=== PATIENT | female | born 1970 | race American Indian/Alaskan Native ===

== ENCOUNTER 2016-07-03 05:19 | Inpatient (IN) | payer MEDICAID, OTHER ==
[2016-07-03] MEDS ORDERED: Sodium Chloride 0.9% 1,000 ML IV ONE ×2 (05:42→08:04)
[2016-07-03] MEDS ORDERED: Sodium Chloride 0.9% 0 ML ONE (05:50)
--- NOTE | 2016-07-03 06:03 | C.PDOC ---
History Of Present Illness 45 y/o female presents to ED with requesting detox from alcohol and cocaine. Patient reports using crack and drinking alcohol daily. Patient also complains of feeling tremulous. Notes last drink was 5 hours ago. Denies chest pain, palpitations, SOB, SI/HI, or other complaints. Time Seen by Provider: 07/03/16 05:41 Chief Complaint (Nursing): Psychiatric Evaluation History Per: Patient History/Exam Limitations: no limitations Onset/Duration Of Symptoms: Persistent Current Symptoms Are (Timing): Still Present Suicide/Self Injury Attempted (Context): None Modifying Factor(s): Alcohol, Cocaine, Crack Associated Symptoms: denies: Suicidal Thoughts, Suicidal Plan Recent travel outside of the [place]: No Past Medical History Reviewed: Historical Data, Nursing Documentation, Vital Signs Vital Signs: Last Vital Signs Temp 97.3 F L 07/03/16 05:28 Pulse 120 H 07/03/16 05:28 Resp 22 07/03/16 05:28 BP 157/119 H 07/03/16 05:28 Pulse Ox 98 07/03/16 06:05 - Medical History PMH: No Chronic Diseases Family History: States: Unknown Family Hx - Social History Hx Alcohol Use: Yes Hx Substance Use: Yes - Immunization History Hx Tetanus Toxoid Vaccination: Yes Hx Influenza Vaccination: No Hx Pneumococcal Vaccination: No Review Of Systems Except As Marked, All Systems Reviewed And Found Negative. Constitutional: Positive for: Other (tremors). Negative for: Fever Cardiovascular: Negative for: Chest Pain, Palpitations Respiratory: Negative for: Cough, Shortness of Breath Gastrointestinal: Negative for: Nausea, Vomiting Neurological: Negative for: Dizziness Psych: Positive for: Withdrawal Physical Exam - Physical Exam Appears: Non-toxic, Other (generalized tremors) Skin: Warm, Dry Head: Atraumatic, Normacephalic Oral Mucosa: Moist Chest: Symmetrical Cardiovascular: Rhythm Regular (tachycardic), No Murmur Respiratory: Normal Breath Sounds, No Rales, No Rhonchi, No Wheezing Gastrointestinal/Abdominal: Soft, No Tenderness Back: Normal Inspection Extremity: Normal ROM, Capillary Refill (< 2 sec.) Neurological/Psych: Oriented x3, Normal Speech, Normal Cognition ED Course And Treatment - Laboratory Results Result Diagrams: 07/03/16 06:04 07/03/16 06:04 O2 Sat by Pulse Oximetry: 98 (RA) Pulse Ox Interpretation: Normal Progress Note: Patient refuses IV for hydration. Requests librium. Will give librium PO. Labs ordered. Pt S/O to HECTOR rucker- pending labs and crisis evaluation Disposition - Disposition Disposition Time: 07:02 Condition: STABLE - Clinical Impression Clinical Impression: Drug dependence - PA / FAMILY SERVICE COUNSELOR / Resident Statement MD/DO has reviewed & agrees with the documentation as recorded. - Scribe Statement The provider has reviewed the documentation as recorded by the Scribe Phillip Baig Provider Scribe Attestation: All medical record entries made by the Scribe were at my direction and personally dictated by me. I have reviewed the chart and agree that the record accurately reflects my personal performance of the history, physical exam, medical decision making, and the department course for this patient. I have also personally directed, reviewed, and agree with the discharge instructions and disposition. Physician Patient Turnover Patient Signed Over To: Shalonda Rucker Handoff Comments: Pending labs for clearance for crisis evaluation
[2016-07-03 06:10] LABS: BASO % 1.2 % (0.0-2.0); EOS # 0.1 K/uL (0.0-0.7); EOS % 2.7 % (0.0-4.0); HEMATOCRIT 35.3 % (34.0-47.0); LYMPH # 1.6 K/uL (1.0-4.3); LYMPH % 39.7 % (20.0-40.0); MEAN CELL VOLUME 93.9 fL (81.0-99.0); MEAN CORPUSCULAR HEMOGLOBIN 30.5 pg (27.0-31.0); MEAN CORPUSCULAR HGB CONC 32.5 g/dL (33.0-37.0); MEAN PLATELET VOLUME 7.4 fL (7.2-11.7); MONO # 0.4 K/uL (0.0-0.8); MONO % 10.3 % (0.0-10.0); NRBC % 0.1 % (0.0-2.0); RED CELL DISTRIBUTION WIDTH 13.7 % (11.5-14.5); WHITE BLOOD COUNT 3.9 K/uL (4.8-10.8)
[2016-07-03 06:38] LABS: CHLORIDE 102 mmol/L (98-107)
[2016-07-03 06:39] LABS: POTASSIUM 3.4 mmol/L (3.6-5.2); SODIUM 139 mmol/L (132-148)
[2016-07-03 06:41] LABS: ALB/GLOB RATIO 1.1 (1.0-2.1); AST/SGOT 59 U/L (14-36); BILIRUBIN,TOTAL < 0.1 mg/dL (0.2-1.3); CARBON DIOXIDE 25 mmol/L (22-30); GFR AFRICAN-AMERICAN > 60; TOTAL PROTEIN 7.9 g/dL (6.3-8.3)
[2016-07-03 06:42] LABS: ALCOHOL SERUM 139 mg/dl (0-10); ALKALINE PHOSPHATASE 61 U/L (38-126); ALT/SGPT 56 U/L (9-52); BLOOD UREA NITROGEN 4 mg/dL (7-17); CALCIUM 8.8 mg/dl (8.6-10.4); GLUCOSE,RANDOM 86 mg/dL (65-105)
[2016-07-03 08:51] LABS: RBC URINE < 1 /hpf (0-3); URINE BILIRUBIN NEGATIVE (NEGATIVE); URINE BLOOD NEGATIVE (NEGATIVE); URINE COLOR Yellow (YELLOW); URINE GLUCOSE (UA) NORMAL (Normal); URINE KETONE NEGATIVE (NEGATIVE); URINE LEUKOCYTE ESTERASE NEG Leu/uL (Negative); URINE PROTEIN NEGATIVE (NEGATIVE); URINE UROBILINOGEN NORMAL mg/dL (0.2-1.0); WBC URINE 2 /hpf (0-5)
[2016-07-03] MEDS ORDERED: Sodium Chloride 0.9% 1,000 ML ONE (10:22)
[2016-07-03] MEDS ORDERED: Aluminum Hydroxide/Magnesium Hydroxide Susp (30 mL) PO PRN (16:05)
[2016-07-03] MEDS: Multiple Vitamins Tab PO SCH (17:40)
[2016-07-04] MEDS: Multiple Vitamins Tab PO SCH (09:46)
--- NOTE | 2016-07-04 10:31 | PCM.PSYCH ---
Initial Psychiatric Evaluation - Initial Psychiatric Evaluation Type of Admission: Voluntary Legal Status: Capacity Chief Complaint (in patient's own words): "I want to stop drinking" History of Present Illness and Precipitating Events: Patient is a 45 year old Female. She lives with her and has no children. She supports herself by stealing. Patient says she came to the hospital because she was feeling depressed and passive suicidal ideation. Pt reports "Addiction is killing me" "drugs killing me". Patient reports a long history of drinking. Patient drinks 2 pints of vodka and 12, 24oz cans of beer a day. She also smokes $100 dollars worth of crack cocaine. Her last use was before coming to hospital. Patient says she drinks all throughout the day and wants to stop using because she is "killing herself. " Patient says she was in detox at [facility] last year and started drinking/ using the day she got out. She never went to rehab and would like to. She denies using any other drugs. Patient denies any psychiatric history except for depression for which she took Zoloft 20 years ago. she reports depressed mood, at times feelings of hopelessness and helplessness and poor sleep and poor appetite. She also reports at times racing of thoughts and flight of ideas. Patient denies ever having DTs, seizures. Patient says she is shaky, sweating and very irritable. Patient denies any visual/auditory hallucinations. Patient denies any current or past suicidal or homicidal ideation. Patient remained irritable and agitated throughout the interview. She was aggravated and cursing at other patients and staff. Allergies: denies PMH: denies PsychHx: depression FamPsychHx: denies Current Medications: Active Medications Generic Name Dose Route Start Last Admin Trade Name Freq PRN Reason Stop Dose Admin Al Hydrox/Mg Hydrox/Simethicone 30 ml 07/03/16 16:05 Maalox 30 Ml PO TID PRN Indigestion / Heartburn Chlordiazepoxide 25 mg 07/03/16 18:00 07/03/16 22:01 Librium PO 07/07/16 17:59 Not Given Q6 GERARDO Taper Chlordiazepoxide 25 mg 07/03/16 15:45 07/04/16 09:46 Librium PO 25 mg Q4H PRN Administration Alcohol Withdrawal Clonidine HCl 0.1 mg 07/03/16 16:04 Catapres PO Q4H PRN Symptoms of alcohol withdrawl Folic Acid 1 mg 07/03/16 16:15 07/03/16 17:40 Folic Acid PO Not Given DAILY GERARDO Lorazepam 1 mg 07/03/16 16:06 07/03/16 23:16 Ativan PO 1 mg Q6 PRN Administration Symptoms of alcohol withdrawl Mirtazapine 15 mg 07/03/16 22:00 07/03/16 23:16 Remeron PO 15 mg HS GERARDO Administration Multivitamins 1 tab 07/03/16 16:15 07/04/16 09:46 Hexavitamin PO 1 tab DAILY EGRARDO Administration Nicotine 1 patch 07/03/16 16:15 07/04/16 09:45 Nicoderm Cq TD Not Given DAILY GERARDO Ondansetron HCl 4 mg 07/03/16 16:05 Zofran Tab PO Q8 PRN Nausea/Vomiting Pneumococcal Polyvalent Vaccine 0.5 ml 07/05/16 10:00 Pneumovax 23 Vaccine IM 07/05/16 10:01 .ONCE ONE Thiamine HCl 100 mg 07/03/16 16:15 07/04/16 09:45 Vitamin B1 Tab PO 100 mg DAILY GERARDO Administration Past Psychiatric History - Past Psychiatric History Previous Treatment History: None Pertinent Medical Hx (Current Medical&Sleep Prob, Allergies): Allergies Allergy/AdvReac Type Severity Reaction Status Date / Time No Known Allergies Allergy Verified 07/03/16 05:33 Review of Systems - Review of Systems All systems: reviewed and no additional remarkable complaints except - Psychiatric Psychiatric: Anxiety, Behavioral Changes, Irritability, Mood Swings, Suicidal Ideation Mental Status Examination - Personal Presentation Personal Presentation: Looks stated age - Affect Affect: Broad - Motor Activity Motor Activity: Psychomotor Agitation - Reliability in Providing Information Reliability in Providing Information: Poor, due to altered mood - Speech Speech: Organized - Mood Mood: Anxious - Formal Thought Process Formal Thought Process: Flight of ideas - Obsessions/Compulsions Obsessions: No Compulsions: No - Cognitive Functions Orientation: Person, Place, Situation, Time Sensorium: Alert Attention/Concentration: Attentive Abstract Thinking: [place] Estimate of Intelligence: Below average Judgement: Imparied, as evidence by: Poor judgement, Imparied, as evidence by: Lack of insight into illness - Risk Risk: Suicidal, Withdrawal, Diminished functioning - Strength & Assets Inventory Strength & Assets Inventory: Cooperative DSM 5 DX - DSM 5 DSM 5 Diagnosis: Bipolar disorder current episode mixed severe without psychotic features Alcohol use disorder severe Alcohol withdrawal uncomplicated Cocaine use disorder severe - Recommended/Plan of Treatment Treatment Recommendations and Plan of Treatment: Bipolar disorder current episode mixed severe without psychotic features CBT Psychoeducation Supportive therapy, group therapy, individual therapy Remeron 15 mg by mouth daily at bedtime Alcohol use disorder severe CBT Psychoeducation Supportive therapy, individual therapy Use [place] for abstinence Alcohol withdrawal uncomplicated CBT Psychoeducation Supportive therapy, individual therapy Librium when necessary Start Librium taper Start folic acid/thiamine/multivitamin Cocaine use disorder severe CBT Psychoeducation Supportive therapy, individual therapy Use [place] for abstinence - Smoking Cessation Smoking Cessation Initiated: No
[2016-07-05] MEDS: Multiple Vitamins Tab PO SCH (09:50)
[2016-07-05] MEDS ORDERED: Pneumococcal 23-Valent Vaccine IM ONE (10:00)
--- NOTE | 2016-07-05 15:55 | PCM.PYCHPN ---
Psychiatric Progress Note - Psychiatric Progress Note Patient seen today, length of contact: 16 min Patient Chief Complaint: "I am still feeling depressed Problems Identified/Issues Discussed: Patient seen and evaluated, chart reviewed and discussed with the nurse. Patient reports irritability and agitation. She reports racing of thoughts and flight of ideas and anxiety. However she remained isolated and withdrawn. She still reports withdrawal symptoms including shakes, anxiety, headaches and sweating. she denied any hallucinations and persecutory delusions. Patient is taking medication and denies any side effects. Supportive therapy and psychoeducation were given Medication Change: Yes (start Neurontin, start trazodone) Medical Record Reviewed: Yes Mental Status Examination - Cognitive Function Orientation: Person, Place, Situation, Time Memory: Intact Attention: WNL Concentration: Poor Association: WNL Fund of Knowledge: Poor - Mood Mood: Anxious - Affect Affect: Broad - Speech Speech: Soft - Formal Thought Process Formal Thought Process: Flight of ideas - Suicidal Ideation Suicidal Ideation: No - Homicidal Ideation Homicidal Ideation: No Goal/Treatment Plan - Goal/Treatment Plan Need for Continued Stay: Discharge may exacerbated symptoms, Severe functional impairment Progress Toward Problem(s) and Goals/Treatment Plan: Bipolar disorder current episode mixed severe without psychotic features CBT Psychoeducation Supportive therapy, group therapy, individual therapy Remeron 15 mg by mouth daily at bedtime Neurontin 100 mg by mouth 3 times a day Trazodone 50 mg by mouth daily at bedtime Alcohol use disorder severe CBT Psychoeducation Supportive therapy, individual therapy Use [place] for abstinence Alcohol withdrawal uncomplicated CBT Psychoeducation Supportive therapy, individual therapy Librium when necessary Start Librium taper Start folic acid/thiamine/multivitamin Cocaine use disorder severe CBT Psychoeducation Supportive therapy, individual therapy Use [place] for abstinence - Smoking Cessation Smoking Cessation Initiated: No
[2016-07-05] MEDS ORDERED: Vitamins A & D Oint UD Foilpak TOP PRN (18:23)
[2016-07-06 07:30] VITALS: O2SAT 99
--- NOTE | 2016-07-06 09:35 | PCM.PYCHPN ---
Psychiatric Progress Note - Psychiatric Progress Note Patient seen today, length of contact: 16 min Patient Chief Complaint: "I aml feeling very anxious Problems Identified/Issues Discussed: Patient seen and evaluated, chart reviewed and discussed with the nurse. As per staff yesterday patient became very irritable and agitated. She was mad and angry on the staff. Patient reporting irritability and racing of thoughts. She reports some improvement in the withdrawal symptoms but still reports including anxiety, headaches and sweating. she denied any hallucinations and persecutory delusions. Patient is taking medication and denies any side effects. Supportive therapy and psychoeducation were given Medication Change: Yes (start Depakote, increase trazodone ) Medical Record Reviewed: Yes Mental Status Examination - Cognitive Function Orientation: Person, Place, Situation, Time Memory: Intact Attention: WNL Concentration: Poor Association: WNL Fund of Knowledge: Poor - Mood Mood: Anxious - Affect Affect: Broad - Speech Speech: Pressured - Formal Thought Process Formal Thought Process: Flight of ideas - Suicidal Ideation Suicidal Ideation: No - Homicidal Ideation Homicidal Ideation: No Goal/Treatment Plan - Goal/Treatment Plan Need for Continued Stay: Discharge may exacerbated symptoms, Severe functional impairment Progress Toward Problem(s) and Goals/Treatment Plan: Bipolar disorder current episode mixed severe without psychotic features CBT Psychoeducation Supportive therapy, group therapy, individual therapy Remeron 15 mg by mouth daily at bedtime Neurontin 100 mg by mouth 3 times a day Increase Trazodone 100 mg by mouth daily at bedtime Depakote 250 mg by mouth twice a day Alcohol use disorder severe CBT Psychoeducation Supportive therapy, individual therapy Use [place] for abstinence Alcohol withdrawal uncomplicated CBT Psychoeducation Supportive therapy, individual therapy Librium when necessary Start Librium taper Start folic acid/thiamine/multivitamin Cocaine use disorder severe CBT Psychoeducation Supportive therapy, individual therapy Use [place] for abstinence - Smoking Cessation Smoking Cessation Initiated: No
[2016-07-06] MEDS: Multiple Vitamins Tab PO SCH (09:41)
[2016-07-06] MEDS: Divalproex 250 mg DR Tab PO SCH ×2 (14:17→17:22)
[2016-07-07] MEDS: Divalproex 250 mg DR Tab PO SCH (09:46)
[2016-07-07] MEDS: Multiple Vitamins Tab PO SCH (09:47)
--- NOTE | 2016-07-07 14:45 | PCM.PYCHPN ---
Psychiatric Progress Note - Psychiatric Progress Note Patient seen today, length of contact: 15 min Patient Chief Complaint: "Nothing" Problems Identified/Issues Discussed: The pt is seen, chart reviewed, case discussed with staff. The pt is compliant with medications and reports no side-effects. Symptoms are improving but needs more time to stabilize. Still irate, loud, odd and has poor insight After care discussed, support and psychoeducation given. Medication Change: Yes (increase depakote) Medical Record Reviewed: Yes Mental Status Examination - Cognitive Function Orientation: Person, Place, Situation, Time Memory: Intact Attention: WNL Concentration: Poor Association: WNL Fund of Knowledge: Poor - Mood Mood: Anxious - Affect Affect: Broad - Speech Speech: Loud - Formal Thought Process Formal Thought Process: Loosening of associations - Suicidal Ideation Suicidal Ideation: No - Homicidal Ideation Homicidal Ideation: No Goal/Treatment Plan - Goal/Treatment Plan Need for Continued Stay: Discharge may exacerbated symptoms, Severe functional impairment Progress Toward Problem(s) and Goals/Treatment Plan: Continue medications Support and psychoeducation daily Attend groups and activities daily After care planning
[2016-07-07] MEDS: Divalproex 500 mg DR Tab PO SCH (18:15)
[2016-07-07] MEDS: Benzocaine/Menthol (Cepacol) Lozenge MT PRN (20:27)
[2016-07-08] MEDS: Benzocaine/Menthol (Cepacol) Lozenge MT PRN ×2 (03:11→15:55)
[2016-07-08] MEDS: Divalproex 500 mg DR Tab PO SCH ×2 (09:28→17:49)
[2016-07-08] MEDS: Multiple Vitamins Tab PO SCH (09:28)
--- NOTE | 2016-07-09 00:53 | PCM.PYCHPN ---
Psychiatric Progress Note - Psychiatric Progress Note Patient seen today, length of contact: 15 min Patient Chief Complaint: "Tired" Problems Identified/Issues Discussed: The pt is seen, chart reviewed, case discussed with staff. The pt is compliant with medications and reports no side-effects. Symptoms are improving slowly and needs more time to stabilize. After care discussed and she wants rehab but not motivated much Again, support and psychoeducation given. Medication Change: No Medical Record Reviewed: Yes Mental Status Examination - Cognitive Function Orientation: Person, Place, Situation, Time Memory: Intact Attention: WNL Concentration: Poor Association: WNL Fund of Knowledge: Poor - Mood Mood: Anxious - Affect Affect: Broad - Speech Speech: Loud - Formal Thought Process Formal Thought Process: Loosening of associations - Suicidal Ideation Suicidal Ideation: No - Homicidal Ideation Homicidal Ideation: No Goal/Treatment Plan - Goal/Treatment Plan Need for Continued Stay: Discharge may exacerbated symptoms, Severe functional impairment Progress Toward Problem(s) and Goals/Treatment Plan: Continue medications Support and psychoeducation daily Attend groups and activities daily After care planning
[2016-07-09 09:44] VITALS: BP 134/83; PULSE 114; RESP 20; TEMP 97.9
[2016-07-09] MEDS: Divalproex 500 mg DR Tab PO SCH (09:54)
[2016-07-09] MEDS: Multiple Vitamins Tab PO SCH (09:54)
--- NOTE | 2016-07-09 10:22 | PCM.PYCHDC ---
Mental Status Examination - Mental Status Examination Orientation: Person, Place, Situation, Time Memory: Intact Mood: Neutral Affect: Constricted Speech: Soft Attention: WNL Concentration: WNL Association: WNL Fund of Knowledge: WNL Formal Thought Process: No Impairment Description of patient's judgement and insight: good, fair Psychotic Thoughts and Behaviors: denies any AVH Suicidal Ideation: No Current Homicidal Ideation?: No Discharge Summary - Discharge Note Reason for Hospitalization: Patient is a 45 year old Female. She lives with her and has no children. She supports herself by stealing. Patient says she came to the hospital because she was feeling depressed and passive suicidal ideation. Pt reports "Addiction is killing me" "drugs killing me". Patient reports a long history of drinking. Patient drinks 2 pints of vodka and 12, 24oz cans of beer a day. She also smokes $100 dollars worth of crack cocaine. Her last use was before coming to hospital. Patient says she drinks all throughout the day and wants to stop using because she is "killing herself. " Patient says she was in detox at [facility] last year and started drinking/ using the day she got out. She never went to rehab and would like to. She denies using any other drugs. Patient denies any psychiatric history except for depression for which she took Zoloft 20 years ago. she reports depressed mood, at times feelings of hopelessness and helplessness and poor sleep and poor appetite. She also reports at times racing of thoughts and flight of ideas. Patient denies ever having DTs, seizures. Patient says she is shaky, sweating and very irritable. Patient denies any visual/auditory hallucinations. Patient denies any current or past suicidal or homicidal ideation. Patient remained irritable and agitated throughout the interview. She was aggravated and cursing at other patients and staff. Consultations:: List each consultation separately and include: 1. Reason for request. 2. Findings. 3. Follow-up Summary of Hospital Course include:: 1. Description of specific treatment plan utilized for patients during their course of treatmen. 2. Summarize the time- course for resolution of acute symptoms and/or regressed behaviors. 3. Describe issues identified and worked on during hospitalization. 4. Describe medication utilized. 5. Describe medical problems identified and treated. 6. Reassessment of suicide risk Summary of Hospital Course: During the course of her stay, patient (pt) started progressively improving and she no longer remained irritable, anxious and agitated. Her mood and withdrawal symptoms were improved and she started attending groups and meetings and started socializing. Patient denied any feelings of hopelessness, helplessness, and worthlessness, denied any problem with the sleep or appetite, denied suicidal ideation or homicidal ideation. Pt denied any auditory or visual hallucinations. Some changes were made in her current medications and patient was discharged on following medications. She tolerated these medications very well and denied any side effects. - Final Diagnosis (DSM 5) Condition upon Discharge: STABLE DSM 5: Bipolar disorder current episode mixed severe without psychotic features Alcohol use disorder severe Alcohol withdrawal uncomplicated Cocaine use disorder severe Disposition: HOME/ ROUTINE Follow-up Treatment Plan: Education: Pt was educated and counseled about the risks and benefits of taking and not taking medications. Pt was educated and counseled about the risks of drinking and abusing drugs. Pt was educated and counseled to go to the ER or call 911 if pt develop suicidal ideation or homicidal ideation, worsening of symptoms or severe side effects of the meds. Prescriptions/Medication Reconciliation: Divalproex [Depakote DR] 500 mg PO BID #60 tcp traZODone [Desyrel] 100 mg PO HS #30 tab - Smoking Cessation Smoking Cessation Medication prescribed: No - Antipsychotic Medications Pt discharged on 2 or more routine antipsychotic medications: No
== END 2016-07-09 11:50 | disposition home or self-care (01) | DRG 751 ==
LOC: C.ER 05:19 → C.9E 12:26 → C.5E 12:47
PROVIDERS: ADMIT Psychiatry & Neurology Psychiatry; ATTEND Psychiatry & Neurology Psychiatry
PROC: HZ2ZZZZ Detoxification Services for Substance Abuse Treatment (ICD-10-PCS; principal; 2016-07-04)
PROC: HZ42ZZZ Group Counseling for Substance Abuse Treatment, Cognitive-Behavioral (ICD-10-PCS; 2016-07-04)
PROC: HZ32ZZZ Individual Counseling for Substance Abuse Treatment, Cognitive-Behavioral (ICD-10-PCS; 2016-07-04)
PROC: HZ46ZZZ Group Counseling for Substance Abuse Treatment, Psychoeducation (ICD-10-PCS; 2016-07-04)
PROC: HZ36ZZZ Individual Counseling for Substance Abuse Treatment, Psychoeducation (ICD-10-PCS; 2016-07-04)
PROC: HZ59ZZZ Individual Psychotherapy for Substance Abuse Treatment, Supportive (ICD-10-PCS; 2016-07-04)
DX: F10.230 Alcohol dependence with withdrawal, uncomplicated (principal); R45.851 Suicidal ideations; F31.63 Bipolar disorder, current episode mixed, severe, without psychotic features; F14.10 Cocaine abuse, uncomplicated; Y90.6 Blood alcohol level of 120-199 mg/100 ml

== ENCOUNTER 2016-07-16 10:21 | Emergency (ER) | payer MEDICAID, OTHER ==
[2016-07-16 10:30] VITALS: RESP 20; TEMP 98.4
[2016-07-16 12:11] LABS: BASO # 0.1 K/uL (0.0-0.2); BASO % 1.2 % (0.0-2.0); EOS # 0.2 K/uL (0.0-0.7); HEMATOCRIT 33.8 % (34.0-47.0); LYMPH # 1.4 K/uL (1.0-4.3); MEAN CELL VOLUME 93.1 fL (81.0-99.0); MEAN CORPUSCULAR HEMOGLOBIN 31.2 pg (27.0-31.0); MEAN CORPUSCULAR HGB CONC 33.5 g/dL (33.0-37.0); MONO # 0.9 K/uL (0.0-0.8); MONO % 13.8 % (0.0-10.0); RED CELL DISTRIBUTION WIDTH 13.4 % (11.5-14.5)
[2016-07-16 12:12] LABS: WHITE BLOOD COUNT 6.2 K/uL (4.8-10.8)
[2016-07-16 12:29] LABS: RBC URINE 10 /hpf (0-3); URINE BILIRUBIN NEGATIVE (NEGATIVE); URINE BLOOD 3+ (NEGATIVE); URINE COLOR Yellow (YELLOW); URINE GLUCOSE (UA) NORMAL (Normal); URINE KETONE TRACE mg/dL (NEGATIVE); URINE LEUKOCYTE ESTERASE TRACE Leu/uL (Negative); URINE PROTEIN NEGATIVE (NEGATIVE); WBC URINE 5 /hpf (0-5)
[2016-07-16 12:30] LABS: CHLORIDE 102 mmol/L (98-107); POTASSIUM 3.6 mmol/L (3.6-5.2); SODIUM 136 mmol/L (132-148)
[2016-07-16 12:32] LABS: ALB/GLOB RATIO 1.1 (1.0-2.1); ALKALINE PHOSPHATASE 83 U/L (38-126); AST/SGOT 41 U/L (14-36); BILIRUBIN,TOTAL 0.7 mg/dL (0.2-1.3); CARBON DIOXIDE 24 mmol/L (22-30); GFR AFRICAN-AMERICAN > 60; TOTAL PROTEIN 7.6 g/dL (6.3-8.3)
[2016-07-16 12:33] LABS: ALCOHOL SERUM < 10 mg/dl (0-10); ALT/SGPT 29 U/L (9-52); BLOOD UREA NITROGEN 10 mg/dL (7-17); CALCIUM 8.5 mg/dl (8.6-10.4); GLUCOSE,RANDOM 82 mg/dL (65-105)
--- NOTE | 2016-07-16 12:38 | C.PDOC ---
History Of Present Illness 45 year old patient presents to the ED complaining of intermittent suicidal ideation. Patient reports she is currently not suicidal. She has a history of drug and alcohol abuse. She states "I don't know how to fix my life." Patient denies fever, homicidal ideation or other complaints. Time Seen by Provider: 07/16/16 10:46 Chief Complaint (Nursing): Psychiatric Evaluation History Per: Patient History/Exam Limitations: no limitations Onset/Duration Of Symptoms: Intermittent Episodes Current Symptoms Are (Timing): Still Present Suicide/Self Injury Attempted (Context): None Severity: None Pain Scale Rating Of: 0 Associated Symptoms: Suicidal Thoughts Recent travel outside of the [place]: No Additional History Per: Prior Records Past Medical History Reviewed: Historical Data, Nursing Documentation, Vital Signs Vital Signs: Last Vital Signs Temp 98.4 F 07/16/16 14:05 Pulse 88 07/16/16 14:05 Resp 20 07/16/16 14:05 BP 142/90 07/16/16 14:05 Pulse Ox 97 07/16/16 18:30 - Medical History PMH: Depression - [facility] Procedures DETOXIFICATION SERVICES FOR SUBSTANCE ABUSE TREATMENT (07/03/16) GROUP SAUSAGE STRINGER FOR SUBSTANCE ABUSE TREATMENT, PSYCHOEDUCATION (07/03/16) GROUP SAUSAGE STRINGER FOR SUBSTANCE ABUSE, COGNITIVE BEHAVIORAL (07/03/16) INDIV SAUSAGE STRINGER FOR SUBSTANCE ABUSE TREATMENT, PSYCHOEDUCATION (07/03/16) INDIV SAUSAGE STRINGER FOR SUBSTANCE ABUSE, COGNITIVE BEHAVIORAL (07/03/16) INDIV PSYCHOTHERAPY FOR SUBSTANCE ABUSE TREATMENT, SUPPORT (07/03/16) Family History: States: Unknown Family Hx - Social History Hx Alcohol Use: Yes Hx Substance Use: Yes - Immunization History Hx Tetanus Toxoid Vaccination: Yes Hx Influenza Vaccination: No Hx Pneumococcal Vaccination: No Review Of Systems Except As Marked, All Systems Reviewed And Found Negative. Constitutional: Negative for: Fever Psych: Positive for: Other (not currently suicidal/homicidal) Physical Exam - Physical Exam Appears: Non-toxic, No Acute Distress Skin: Warm, Dry Head: Atraumatic, Normacephalic Neck: Normal ROM, Supple Chest: Symmetrical Cardiovascular: Rhythm Regular Respiratory: No Accessory Muscle Use Extremity: Normal ROM Neurological/Psych: Oriented x3 Gait: Steady ED Course And Treatment - Laboratory Results Result Diagrams: 07/16/16 12:07 07/16/16 12:07 O2 Sat by Pulse Oximetry: 97 (room air) Pulse Ox Interpretation: Normal Progress Note: Plan: Labs, Librium. Case discussed with Crisis who will evaluate the patient at bedside. Crisis notes patient was admitted here 1 week ago for detox. Patient is cleared by crisis and Dr. French for discharge. Disposition - Disposition Disposition: HOME/ ROUTINE Disposition Time: 14:15 Condition: STABLE Instructions: Abuse of Alcohol (ED), Polysubstance Abuse (ED) - Clinical Impression Clinical Impression: Alcohol dependence, Polysubstance abuse - PA / MOLDING ASSOCIATE / Resident Statement MD/DO has reviewed & agrees with the documentation as recorded. - Scribe Statement The provider has reviewed the documentation as recorded by the Scribe Lakeshia Palacios All medical record entries made by the Scribe were at my direction and personally dictated by me. I have reviewed the chart and agree that the record accurately reflects my personal performance of the history, physical exam, medical decision making, and the department course for this patient. I have also personally directed, reviewed, and agree with the discharge instructions and disposition.
[2016-07-16 14:06] VITALS: BP 142/90; PULSE 88
[2016-07-16 14:11] VITALS: O2SAT 97
== END 2016-07-16 14:20 | disposition home or self-care (01) ==
LOC: C.ER 10:21
DX: F10.20 Alcohol dependence, uncomplicated (principal); F19.10 Other psychoactive substance abuse, uncomplicated; Y90.9 Presence of alcohol in blood, level not specified

== ENCOUNTER 2016-07-18 05:06 | Observation (INO) | payer MEDICAID ==
[2016-07-18] MEDS ORDERED: DiphenhydrAMINE 50 mg/ml Inj ONE (05:37)
--- NOTE | 2016-07-18 05:43 | C.PDOC ---
History Of Present Illness A 45 y/o female presents to the ER c/o being depressed, drinking ETOH, and crack use STUDIO SALES ASSOCIATE. Pt notes that she wants to "stop drinking ETOH and doing crack". Pt is agitated, combative, and verbally abusive on arrival. Pt is put in 4 point constraint for the safety of the patient, staff, and other patients. Pt denies suicidal or homicidal ideation, fever, chills, nausea, vomiting, or any other complaints. Time Seen by Provider: 07/18/16 05:43 Chief Complaint (Nursing): Substance Abuse History Per: Patient History/Exam Limitations: intoxication Onset/Duration Of Symptoms: Hrs Current Symptoms Are (Timing): Still Present Suicide/Self Injury Attempted (Context): None Modifying Factor(s): Alcohol, Crack Severity: Mild Associated Symptoms: Depression. denies: Suicidal Thoughts, Suicidal Plan Recent travel outside of the [place]: No Additional History Per: Patient Past Medical History Reviewed: Historical Data, Nursing Documentation, Vital Signs Vital Signs: Last Vital Signs Temp 97.2 F L 07/18/16 05:25 Pulse 101 H 07/18/16 05:25 Resp 20 07/18/16 05:25 BP 136/94 H 07/18/16 05:25 Pulse Ox 97 07/18/16 05:57 - Medical History PMH: Depression Denies: Diabetes, Hepatitis, HIV, HTN, Chronic Kidney Disease, Seizures, Sexually Transmitted Disease - [facility] Procedures DETOXIFICATION SERVICES FOR SUBSTANCE ABUSE TREATMENT (07/03/16) GROUP EDUCATIONAL RESOURCE COORDINATOR FOR SUBSTANCE ABUSE TREATMENT, PSYCHOEDUCATION (07/03/16) GROUP EDUCATIONAL RESOURCE COORDINATOR FOR SUBSTANCE ABUSE, COGNITIVE BEHAVIORAL (07/03/16) INDIV EDUCATIONAL RESOURCE COORDINATOR FOR SUBSTANCE ABUSE TREATMENT, PSYCHOEDUCATION (07/03/16) INDIV EDUCATIONAL RESOURCE COORDINATOR FOR SUBSTANCE ABUSE, COGNITIVE BEHAVIORAL (07/03/16) INDIV PSYCHOTHERAPY FOR SUBSTANCE ABUSE TREATMENT, SUPPORT (07/03/16) Family History: States: Unknown Family Hx - Social History Hx Alcohol Use: Yes Hx Substance Use: Yes - Immunization History Hx Tetanus Toxoid Vaccination: Yes Hx Influenza Vaccination: No Hx Pneumococcal Vaccination: No Review Of Systems Constitutional: Positive for: Other (ETOH intoxication and crack use). Negative for: Fever, Chills Gastrointestinal: Negative for: Nausea, Vomiting Psych: Positive for: Depression. Negative for: Suicidal ideation, Other ( Homicidal ideation) Physical Exam - Physical Exam Appears: Non-toxic, No Acute Distress, Combative, Agitated, Other (Appears intoxicated. Verbally abusive.) Skin: Warm, Dry Head: Normacephalic Eye(s): bilateral: Normal Inspection Oral Mucosa: Moist Neck: Trachea Midline, Supple Cardiovascular: Rhythm Regular Respiratory: No Rales, No Rhonchi, No Wheezing Gastrointestinal/Abdominal: Soft, No Tenderness Neurological/Psych: Oriented x3, Normal Motor, Normal Sensation, Other (Awake and alert) Gait: Steady ED Course And Treatment O2 Sat by Pulse Oximetry: 97 (RA) Pulse Ox Interpretation: Normal Disposition Counseled Patient/Family Regarding: Studies Performed, Diagnosis - Disposition Disposition Time: 05:43 Condition: UNKNOWN - Clinical Impression Clinical Impression: Drug abuse, Alcohol abuse - Scribe Statement The provider has reviewed the documentation as recorded by the Scribe Eboni selby All medical record entries made by the Scribe were at my direction and personally dictated by me. I have reviewed the chart and agree that the record accurately reflects my personal performance of the history, physical exam, medical decision making, and the department course for this patient. I have also personally directed, reviewed, and agree with the discharge instructions and disposition. Physician Patient Turnover Patient Signed Over To: Frankie Bhardwaj Handoff Comments: pending crisis evaluation and disposition
[2016-07-18] MEDS ORDERED: DiphenhydrAMINE 50 mg/ml Inj IM STA (05:44)
[2016-07-18 06:45] LABS: BASO # 0.1 K/uL (0.0-0.2); EOS # 0.2 K/uL (0.0-0.7); EOS % 4.8 % (0.0-4.0); HEMATOCRIT 34.6 % (34.0-47.0); LYMPH # 1.9 K/uL (1.0-4.3); LYMPH % 36.9 % (20.0-40.0); MEAN CELL VOLUME 93.5 fL (81.0-99.0); MEAN CORPUSCULAR HGB CONC 33.1 g/dL (33.0-37.0); MEAN PLATELET VOLUME 7.9 fL (7.2-11.7); MONO # 0.5 K/uL (0.0-0.8); MONO % 9.7 % (0.0-10.0); RED CELL DISTRIBUTION WIDTH 13.3 % (11.5-14.5)
[2016-07-18 06:55] LABS: CHLORIDE 105 mmol/L (98-107); SODIUM 142 mmol/L (132-148)
[2016-07-18 06:56] LABS: POTASSIUM 3.4 mmol/L (3.6-5.2)
[2016-07-18 06:58] LABS: ALB/GLOB RATIO 1.1 (1.0-2.1); ALKALINE PHOSPHATASE 77 U/L (38-126); ALT/SGPT 29 U/L (9-52); AST/SGOT 47 U/L (14-36); BILIRUBIN,TOTAL 0.4 mg/dL (0.2-1.3); BLOOD UREA NITROGEN 7 mg/dL (7-17); CALCIUM 8.3 mg/dl (8.6-10.4); CARBON DIOXIDE 25 mmol/L (22-30); GFR AFRICAN-AMERICAN > 60; GLUCOSE,RANDOM 80 mg/dL (65-105); TOTAL PROTEIN 7.6 g/dL (6.3-8.3)
[2016-07-18 06:59] LABS: ALCOHOL SERUM 94 mg/dl (0-10); RBC URINE 18 /hpf (0-3); URINE BACTERIA RARE (<OCC); URINE BILIRUBIN NEGATIVE (NEGATIVE); URINE BLOOD 3+ (NEGATIVE); URINE COLOR Yellow (YELLOW); URINE GLUCOSE (UA) NORMAL (Normal); URINE KETONE NEGATIVE (NEGATIVE); URINE LEUKOCYTE ESTERASE NEG Leu/uL (Negative); URINE PROTEIN 1+ mg/dL (NEGATIVE); URINE UROBILINOGEN NORMAL mg/dL (0.2-1.0); WBC URINE 10 /hpf (0-5)
--- NOTE | 2016-07-18 14:41 | RAD ---
HISTORY: psych COMPARISON: 04/13/2016 FINDINGS: LUNGS: No active pulmonary disease. Please note that this examination is limited by failure to include the extreme lung apices in this frontal chest radiograph. PLEURA: No significant pleural effusion identified, no pneumothorax apparent. CARDIOVASCULAR: Normal. OSSEOUS STRUCTURES: No significant abnormalities. VISUALIZED UPPER ABDOMEN: Normal. OTHER FINDINGS: None. IMPRESSION: No active disease.
[2016-07-18 16:48] VITALS: RESP 20
[2016-07-18 23:04] VITALS: BP 122/70; TEMP 98.2; O2SAT 98
[2016-07-19 02:18] VITALS: PULSE 88
--- NOTE | 2016-07-19 22:59 | CARD ---
APPROVED REPORT EKG Measurement Heart [id number] <Conclusion> Normal sinus rhythm Normal ECG
== END 2016-07-19 02:19 | disposition short-term general hospital (02) ==
LOC: C.ER 05:06 → C.9OBSV 06:15
PROVIDERS: ADMIT Emergency Medicine; ATTEND Emergency Medicine
DX: F14.10 Cocaine abuse, uncomplicated (principal); F10.129 Alcohol abuse with intoxication, unspecified; F32.9 Major depressive disorder, single episode, unspecified

== ENCOUNTER 2016-08-17 21:59 | Inpatient (IN) | payer MEDICAID ==
[2016-08-17 22:47] LABS: EOS # 0.1 K/uL (0.0-0.7); EOS % 3.9 % (0.0-4.0); HEMATOCRIT 34.8 % (34.0-47.0); LYMPH # 2.3 K/uL (1.0-4.3); LYMPH % 59.2 % (20.0-40.0); MEAN CELL VOLUME 93.8 fL (81.0-99.0); MEAN CORPUSCULAR HEMOGLOBIN 30.4 pg (27.0-31.0); MEAN CORPUSCULAR HGB CONC 32.4 g/dL (33.0-37.0); MEAN PLATELET VOLUME 7.3 fL (7.2-11.7); MONO # 0.4 K/uL (0.0-0.8); MONO % 10.3 % (0.0-10.0); NRBC % 0.2 % (0.0-2.0); RED CELL DISTRIBUTION WIDTH 13.2 % (11.5-14.5); WHITE BLOOD COUNT 3.8 K/uL (4.8-10.8)
[2016-08-17 22:54] LABS: CHLORIDE 106 mmol/L (98-107)
[2016-08-17 22:55] LABS: SODIUM 140 mmol/L (132-148)
--- NOTE | 2016-08-17 22:56 | C.PDOC ---
History Of Present Illness <Adilson Barrett - Last Filed: 08/17/16 22:58> <Heaven Miller - Last Filed: 08/18/16 09:40> 46 year old female presents to the ED with complaints of suicidal ideations for approximately two days. Patient notes a history of alcohol and drug abuse with last use of heroin today and alcohol as well but denies any homicidal ideations. (Adilson Barrett) History Per: Patient History/Exam Limitations: no limitations Onset/Duration Of Symptoms: Days (2 days) Current Symptoms Are (Timing): Still Present Suicide/Self Injury Attempted (Context): None Associated Symptoms: Suicidal Thoughts Involuntary Hold By: None Recent travel outside of the [place]: No <Adilson Barrett - Last Filed: 08/17/16 22:58> <Heaven Miller - Last Filed: 08/18/16 09:40> Chief Complaint (Nursing): Psychiatric Evaluation Past Medical History Reviewed: Historical Data, Nursing Documentation, Vital Signs - Medical History PMH: Depression Family History: States: Unknown Family Hx - Social History Hx Alcohol Use: Yes Hx Substance Use: Yes - Immunization History Hx Tetanus Toxoid Vaccination: Yes Hx Influenza Vaccination: No Hx Pneumococcal Vaccination: No <Adilson Barrett - Last Filed: 08/17/16 22:58> Review Of Systems Constitutional: Negative for: Fever, Chills, Sweats Cardiovascular: Negative for: Chest Pain, Palpitations Respiratory: Negative for: Cough, Shortness of Breath Gastrointestinal: Negative for: Nausea, Vomiting, Abdominal Pain, Diarrhea Psych: Positive for: Suicidal ideation <Adilson Barrett - Last Filed: 08/17/16 22:58> Physical Exam - Physical Exam Appears: Non-toxic, No Acute Distress Skin: Warm, Dry Head: Atraumatic Oral Mucosa: Moist Neck: Normal ROM, Supple Chest: Symmetrical, No Deformity Cardiovascular: Rhythm Regular Respiratory: No Rales, No Rhonchi, No Stridor, No Wheezing Gastrointestinal/Abdominal: Soft, No Tenderness, No Distention, No Guarding, No Rebound Extremity: Normal ROM, No Tenderness Neurological/Psych: Oriented x3 <Adilson Barrett - Last Filed: 08/17/16 22:58> ED Course And Treatment - Laboratory Results Result Diagrams: 08/17/16 22:44 08/17/16 22:44 O2 Sat by Pulse Oximetry: 99 <Adilson Barrett Paolo - Last Filed: 08/17/16 22:58> - Laboratory Results Result Diagrams: 08/17/16 22:44 08/17/16 22:44 <Heaven Miller - Last Filed: 08/18/16 09:40> Disposition <BarrettAdilson Boone - Last Filed: 08/17/16 22:58> Discussed With Dr.: Sarah Carter Counseled Patient/Family Regarding: Studies Performed, Diagnosis - Disposition Disposition Time: :40 - POA Present On Arrival: None <Heaven Miller - Last Filed: 08/18/16 09:40> - Disposition Disposition: HOSPITALIZED Condition: STABLE - Clinical Impression Clinical Impression: Depression, Alcohol abuse - Scribe Statement The provider has reviewed the documentation as recorded by the Scribe <BarrettAdilson Boone - Last Filed: 08/17/16 22:58> <Heaven Miller - Last Filed: 08/18/16 09:40> - Scribe Statement Carolyn Moffett All medical record entries made by the Scribe were at my direction and personally dictated by me. I have reviewed the chart and agree that the record accurately reflects my personal performance of the history, physical exam, medical decision making, and the department course for this patient. I have also personally directed, reviewed, and agree with the discharge instructions and disposition. (Adilson Barrett) Decision To Admit <BarrettAdilson Boone - Last Filed: 08/17/16 22:58> - Pt Status Changed To: Hospital Disposition Of: Inpatient - Admit Certification Admit to Inpatient:: After my assessment, the patient will require hospitalization for at least two midnights. This is because of the severity of symptoms shown, intensity of services needed, and/or the medical risk in this patient being treated as an outpatient. - InPatient: Physician Admission Certification: I certify that this patient requires 2 or more midnights of care for the following reason:: SEE NOTE - . Bed Request Type: Psychiatry Admitting Physician: Sarah Carter <Heaven Miller - Last Filed: 08/18/16 09:40> - . Patient Diagnosis: Depression, Alcohol abuse
[2016-08-17 22:57] LABS: AST/SGOT 47 U/L (14-36); BILIRUBIN,TOTAL 0.4 mg/dL (0.2-1.3); CARBON DIOXIDE 21 mmol/L (22-30); GFR AFRICAN-AMERICAN > 60
[2016-08-17 22:58] LABS: ALCOHOL SERUM 197 mg/dl (0-10); ALKALINE PHOSPHATASE 64 U/L (38-126); ALT/SGPT 39 U/L (9-52); BLOOD UREA NITROGEN 5 mg/dL (7-17); CALCIUM 8.7 mg/dl (8.6-10.4); GLUCOSE,RANDOM 94 mg/dL (65-105)
[2016-08-17 23:02] LABS: POTASSIUM 3.4 mmol/L (3.6-5.2)
[2016-08-18 01:48] LABS: RBC URINE 1 /hpf (0-3); URINE BILIRUBIN NEGATIVE (NEGATIVE); URINE COLOR Yellow (YELLOW); URINE GLUCOSE (UA) NORMAL (Normal); URINE KETONE NEGATIVE (NEGATIVE); URINE LEUKOCYTE ESTERASE NEG Leu/uL (Negative); URINE PROTEIN NEGATIVE (NEGATIVE); URINE UROBILINOGEN NORMAL mg/dL (0.2-1.0); WBC URINE 1 /hpf (0-5)
[2016-08-18 02:12] LABS: URINE BLOOD TRACE (NEGATIVE)
[2016-08-18] MEDS ORDERED: Pneumococcal 23-Valent Vaccine IM ONE (12:07)
[2016-08-19 06:59] VITALS: O2SAT 97
--- NOTE | 2016-08-20 03:42 | PCM.PSYCH ---
Initial Psychiatric Evaluation - Initial Psychiatric Evaluation Legal Status: Capacity (\) Chief Complaint (in patient's own words): I WANT TO BE HAPPY Patient's Reaction to Hospitalization: I KNOW I NEED TO GET CLEAN History of Present Illness and Precipitating Events: PT IS A 46 YHEAR OLD DOMICILED BUT ESTRANGED FROM HER , WHO MIS DEPRESSED AND USING ALCOHOL AND HEROIN. PT IS NOT SLEEPING.NOT EATING (SHE HAS LOST 20 POUNDS IN THE LAST 2 MONTHS) CRYING, CANNOT MAKE DECISIONS AND HAS RACING THOUGHTS. PT WAS AT [facility] SEVERAL MONTHS AGO FOR SIMILAR SYMPTOMS BUT DID NOT FOLLOW UP. PT STARTED DRINKING ABOUT AGE21 BUT IT DID NOT BECOME A PROBLEM UNTIL 1 YEAR AGO. PT DRINKS 2 PINTS AND A SIX PACK DAILY.PT HAS NO LEGAL OR HISTORY. PT'S PARENTS ARE . SHE HAS 3 BROTHERS AND 1 SISTE. SHE IS THE YOUNGEST CHILD. PT DENIES ANY FAMILY HISTORY OF MENTAL ILLNESS OR SUBSTANCE ABUSE Current Medications: Active Medications Generic Name Dose Route Start Last Admin Trade Name Freq PRN Reason Stop Dose Admin Chlordiazepoxide 25 mg 08/18/16 14:00 08/19/16 21:12 Librium PO Not Given Q8 GERARDO Chlordiazepoxide 25 mg 08/19/16 11:50 08/19/16 12:10 Librium PO 25 mg Q8 PRN Administration Anxiety Hydroxyzine HCl 25 mg 08/18/16 10:52 08/19/16 17:21 Atarax PO 08/25/16 10:38 25 mg Q6 PRN Administration Anxiety Loperamide HCl 2 mg 08/18/16 17:20 08/18/16 17:46 Imodium PO 2 mg QID PRN Administration Diarrhea Mirtazapine 15 mg 08/18/16 22:00 08/19/16 21:12 Remeron PO Not Given HS GERARDO Past Psychiatric History - Past Psychiatric History Prior Professional Help: SEE HPI Pertinent Medical Hx (Current Medical&Sleep Prob, Allergies): Allergies Allergy/AdvReac Type Severity Reaction Status Date / Time No Known Allergies Allergy Verified 07/18/16 05:19 No Known Home Med 08/17/16 Review of Systems - Constitutional Constitutional: Malaise - EENT Eyes: UNREMARKABLE Ears: UNREMARKABLE Nose/Mouth/Throat: UNREMARKABLE - Breasts Breasts: UNREMARKABLE - Cardiovascular Cardiovascular: UNREMARKABLE - Respiratory Respiratory: UNREMARKABLE - Gastrointestinal Gastrointestinal: Cramping - Genitourinary Genitourinary: UNREMARKABLE - Reproductive: Female Reproductive:Female: UNREMARKABLE - Menstruation Menstruation: UNREMARKABLE - Musculoskeletal Additional comments: TREMORS - Integumentary Integumentary: UNREMARKABLE - Psychiatric Psychiatric: Anhedonia, Anxiety, Change in Appetite, Depression, Difficulty Concentrating, Hopelessness, Irritability - Endocrine Endocrine: UNREMARKABLE - Hematologic/Lymphatic Hematologic: UNREMARKABLE Mental Status Examination - Personal Presentation Personal Presentation: Looks older than stated age - Affect Affect: Constricted - Motor Activity Motor Activity: Calm - Reliability in Providing Information Reliability in Providing Information: Good - Speech Speech: Organized, Coherent - Mood Mood: Depressed, Anxious - Formal Thought Process Formal Thought Process: No Impairment - Obsessions/Compulsions Obsessions: None Compulsions: None - Cognitive Functions Orientation: Person, Place, Situation, Time Sensorium: Alert Attention/Concentration: Attentive Abstract Thinking: As evidence by abstract perception of proverbs Estimate of Intelligence: Average Judgement: Intact, as evidence by: Good judgement Memory: Recent intact, as evidence by: Ability to recall events of the day, Remote intact, as evidenced by: Ability to recall historical events - Risk Risk: Suicidal, Withdrawal - Strength & Assets Inventory Strength & Assets Inventory: Intelligence, Life experience, Cooperative - Limitations Limitations: Living alone DSM 5 DX - DSM 5 DSM 5 Diagnosis: 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
--- NOTE | 2016-08-20 03:57 | PCM.PYCHPN ---
Psychiatric Progress Note - Psychiatric Progress Note Patient Chief Complaint: I FEEL MISERABLE Problems Identified/Issues Discussed: WITHDRAWAL SYMPTOMS SYMPTOM MANAGEMENT PAWS Medical Problems: NOTHING ACUTE Diagnostic Results: REVIEWED DSM 5 Symptoms Update: ANERGY AVOLITION Medication Change: Yes (LIBRIUM TAPER) Medical Record Reviewed: Yes Mental Status Examination - Cognitive Function Orientation: Person, Place, Situation, Time Attention: Poor Concentration: Poor Association: WNL Fund of Knowledge: WNL - Mood Mood: Depressed, Anxious - Affect Affect: Constricted - Speech Speech: Appropriate - Formal Thought Process Formal Thought Process: No Impairment - Suicidal Ideation Suicidal Ideation: No - Homicidal Ideation Homicidal Ideation: No Goal/Treatment Plan - Goal/Treatment Plan Need for Continued Stay: Severe depression anxiety, Severe functional impairment Progress Toward Problem(s) and Goals/Treatment Plan: MDD SUPPORTIVE PSYCHOTHERAPY ALCOHOL WITHDRAWAL LIBRIUM TAPER ALCOHOL USE DISORDER PA CBT GHROUPS Estimated Date of D/C: 08/24/16 - Smoking Cessation Smoking Cessation Initiated: No
--- NOTE | 2016-08-20 13:56 | PCM.PYCHPN ---
Psychiatric Progress Note - Psychiatric Progress Note Patient seen today, length of contact: 16 min Patient Chief Complaint: "I'm ready to leave" Problems Identified/Issues Discussed: The pt is seen, chart reviewed, case discussed with staff. Support given, CBT and SD used briefly No new symptoms reported, improving slowly and needs some more time No SEs from medications, risks discussed. After care discussed - she is not interested in much Very sarcastic, somewhat irate, semi-motivated Medication Change: Yes (LIBRIUM TAPER) Medical Record Reviewed: Yes Mental Status Examination - Cognitive Function Orientation: Person, Place, Situation, Time Attention: Poor Concentration: Poor Association: WNL Fund of Knowledge: WNL - Mood Mood: Depressed, Anxious - Affect Affect: Constricted - Speech Speech: Appropriate - Formal Thought Process Formal Thought Process: No Impairment - Suicidal Ideation Suicidal Ideation: No - Homicidal Ideation Homicidal Ideation: No Goal/Treatment Plan - Goal/Treatment Plan Need for Continued Stay: Severe depression anxiety, Discharge may exacerbated symptoms, Severe functional impairment Progress Toward Problem(s) and Goals/Treatment Plan: Continue medications Support and psychoeducation daily Attend groups and activities daily After care planning by JULIANA Estimated Date of D/C: 08/23/16
--- NOTE | 2016-08-21 12:25 | PCM.PYCHPN ---
Psychiatric Progress Note - Psychiatric Progress Note Patient seen today, length of contact: 16 min Medication Change: Yes (LIBRIUM TAPER) Medical Record Reviewed: Yes Mental Status Examination - Cognitive Function Orientation: Person, Place, Situation, Time Attention: Poor Concentration: Poor Association: WNL Fund of Knowledge: WNL - Mood Mood: Depressed, Anxious - Affect Affect: Constricted - Speech Speech: Appropriate - Formal Thought Process Formal Thought Process: No Impairment - Suicidal Ideation Suicidal Ideation: No - Homicidal Ideation Homicidal Ideation: No Goal/Treatment Plan - Goal/Treatment Plan Need for Continued Stay: Severe depression anxiety, Severe functional impairment Progress Toward Problem(s) and Goals/Treatment Plan: MDD recurrent severe without psychotic features Alcohol withdrawal Librium taper Alcohol use disorder severe Groups mi cbt supportive psychotherapy Estimated Date of D/C: 08/24/16
[2016-08-22 07:40] VITALS: BP 124/86; PULSE 75; RESP 19; TEMP 98.5
--- NOTE | 2016-08-22 09:05 | PCM.PYCHDC ---
Mental Status Examination - Mental Status Examination Orientation: Person, Place, Situation, Time Memory: Intact Mood: Neutral Affect: Constricted Speech: Soft Attention: WNL Concentration: WNL Association: WNL Fund of Knowledge: WNL Formal Thought Process: No Impairment Description of patient's judgement and insight: good, fair Psychotic Thoughts and Behaviors: denies any AVH Suicidal Ideation: No Current Homicidal Ideation?: No Discharge Summary - Discharge Note Reason for Hospitalization: Pt is a 46 year old domiciled but estranged from her , who was depressed and using alcohol and heroin. Pt is not sleeping, not eating (she has lost 20 pounds in the last 2 months) crying, cannot make decisions and has racing thoughts. Pt was at [facility] several months ago for similar symptoms but did not follow up. Pt started drinking about age21 but it did not become a problem until 1 year ago. Pt drinks 2 pints and a six pack daily.pt has no legal or history. Pt's parents are . She has 3 brothers and 1 sister. She is the youngest child. Pt denies any family history of mental illness or substance abuse Consultations:: List each consultation separately and include: 1. Reason for request. 2. Findings. 3. Follow-up Summary of Hospital Course include:: 1. Description of specific treatment plan utilized for patients during their course of treatmen. 2. Summarize the time- course for resolution of acute symptoms and/or regressed behaviors. 3. Describe issues identified and worked on during hospitalization. 4. Describe medication utilized. 5. Describe medical problems identified and treated. 6. Reassessment of suicide risk Summary of Hospital Course: During the course of her stay, patient (pt) started progressively improving and she no longer remained anxious, depressed and suicidal. Her mood was getting better and she started attending groups and meetings and started socializing. The doses of her medications were maximized and patient denied any feelings of hopelessness, helplessness, and worthlessness, denied any problem with the sleep or appetite, denied suicidal ideation or homicidal ideation. Pt denied any auditory or visual hallucinations. Patient reported improvement in her mood and tolerated these medications very well and denied any side effects. - Final Diagnosis (DSM 5) Condition upon Discharge: STABLE DSM 5: MDD recurrent severe without psychotic features Alcohol withdrawal Alcohol use disorder severe Disposition: HOME/ ROUTINE Follow-up Treatment Plan: Education: Pt was educated and counseled about the risks and benefits of taking and not taking medications. Pt was educated and counseled about the risks of drinking and abusing drugs. Pt was educated and counseled to go to the ER or call 911 if pt develop suicidal ideation or homicidal ideation, worsening of symptoms or severe side effects of the meds. - Smoking Cessation Smoking Cessation Medication prescribed: No - Antipsychotic Medications Pt discharged on 2 or more routine antipsychotic medications: No
== END 2016-08-22 09:10 | disposition home or self-care (01) | DRG 430 ==
LOC: SUPCPDRO 21:59 → C.ER 21:59 → C.9OBSV 08-18 00:57 → OBSVTOIN 08-18 09:40 → C.9E 08-18 09:42 → C.5E 08-18 09:58
PROVIDERS: ADMIT Emergency Medicine; ATTEND Psychiatry & Neurology Psychiatry
PROC: HZ2ZZZZ Detoxification Services for Substance Abuse Treatment (ICD-10-PCS; principal; 2016-08-18)
PROC: GZHZZZZ Group Psychotherapy (ICD-10-PCS; 2016-08-18)
PROC: HZ52ZZZ Individual Psychotherapy for Substance Abuse Treatment, Cognitive-Behavioral (ICD-10-PCS; 2016-08-18)
PROC: HZ59ZZZ Individual Psychotherapy for Substance Abuse Treatment, Supportive (ICD-10-PCS; 2016-08-18)
PROC: HZ56ZZZ Individual Psychotherapy for Substance Abuse Treatment, Psychoeducation (ICD-10-PCS; 2016-08-18)
DX: F33.2 Major depressive disorder, recurrent severe without psychotic features (principal); R45.851 Suicidal ideations; F10.230 Alcohol dependence with withdrawal, uncomplicated; F11.10 Opioid abuse, uncomplicated; Y90.6 Blood alcohol level of 120-199 mg/100 ml

== ENCOUNTER 2016-09-06 13:21 | Emergency (ER) | payer MEDICAID ==
[2016-09-06 13:28] VITALS: BMI 23.6
[2016-09-06 13:29] VITALS: RESP 18; TEMP 98; O2SAT 98
[2016-09-06 14:09] LABS: HCG,QUALITATIVE URINE NEGATIVE (NEGATIVE)
--- NOTE | 2016-09-06 14:09 | C.PDOC ---
History Of Present Illness 46-year-old female, PMHx includes Substance Abuse, Anxiety and Depression, presents to the emergency department with complaints of suicidal ideation. Patient states she has been experiencing increased depression over the past several weeks. Patient reports she wants to be with her parents. States she did "lots of drugs" today. Time Seen by Provider: 09/06/16 13:31 Chief Complaint (Nursing): Psychiatric Evaluation History Per: Patient History/Exam Limitations: no limitations Onset/Duration Of Symptoms: Days Current Symptoms Are (Timing): Still Present Severity: Moderate Past Medical History Reviewed: Historical Data, Nursing Documentation, Vital Signs Vital Signs: Last Vital Signs Temp 98.0 F 09/06/16 13:28 Pulse 96 H 09/06/16 13:28 Resp 18 09/06/16 13:28 BP 130/77 09/06/16 13:28 Pulse Ox 98 09/06/16 15:27 - Medical History PMH: Anxiety, Depression Denies: Diabetes (Patient denied), Hepatitis (Patient denied), HIV (Patient denied), HTN (Patient denied), Chronic Kidney Disease, Seizures (Patient denied) , Sexually Transmitted Disease (Patient denied) - [facility] Procedures DETOXIFICATION SERVICES FOR SUBSTANCE ABUSE TREATMENT (08/18/16) GROUP LEARNING SUPPORT RESOURCE ROOM TEACHER FOR SUBSTANCE ABUSE TREATMENT, PSYCHOEDUCATION (07/03/16) GROUP LEARNING SUPPORT RESOURCE ROOM TEACHER FOR SUBSTANCE ABUSE, COGNITIVE BEHAVIORAL (07/03/16) GROUP PSYCHOTHERAPY (08/18/16) INDIV LEARNING SUPPORT RESOURCE ROOM TEACHER FOR SUBSTANCE ABUSE TREATMENT, PSYCHOEDUCATION (07/03/16) INDIV LEARNING SUPPORT RESOURCE ROOM TEACHER FOR SUBSTANCE ABUSE, COGNITIVE BEHAVIORAL (07/03/16) INDIV PSYCHOTHERAPY FOR SUBSTANCE ABUSE TREATMENT, SUPPORT (08/18/16) INDIV PSYCHOTHERAPY FOR SUBSTANCE ABUSE, COGNITIV BEHAVIORAL (08/18/16) INDIV PSYCHOTHERAPY FOR SUBSTANCE ABUSE, PSYCHOEDUCATION (08/18/16) Family History: States: No Known Family Hx - Social History Hx Alcohol Use: Yes Hx Substance Use: Yes (crack, cocaine) - Immunization History Hx Tetanus Toxoid Vaccination: No Hx Influenza Vaccination: No Hx Pneumococcal Vaccination: No Review Of Systems Except As Marked, All Systems Reviewed And Found Negative. Constitutional: Negative for: Fever Cardiovascular: Negative for: Chest Pain Respiratory: Negative for: Shortness of Breath Gastrointestinal: Negative for: Vomiting Neurological: Negative for: Weakness Psych: Positive for: Depression, Suicidal ideation Physical Exam - Physical Exam Appears: Non-toxic, No Acute Distress Skin: Warm, Dry, No Rash Head: Atraumatic, Normacephalic Eye(s): bilateral: Normal Inspection Nose: Normal Oral Mucosa: Moist Lips: Normal Appearing Neck: Normal ROM Respiratory: No Accessory Muscle Use Extremity: Normal ROM Neurological/Psych: Oriented x3, Normal Speech ED Course And Treatment - Laboratory Results Result Diagrams: 09/06/16 14:09 09/06/16 14:09 O2 Sat by Pulse Oximetry: 98 Medical Decision Making Medical Decision Making: medically cleared. 430: pt cleared by crisi. Disposition - Disposition Referrals: [facility] [Outside] [facility] [Outside] [facility] [Outside] [facility] [Outside] [facility] [Outside] Disposition: HOME/ ROUTINE Disposition Time: 16:29 Condition: STABLE Additional Instructions: please follow up with your doctor and directed by grommet worker. return to er with worsening symptoms or concerns. Instructions: Depression (ED), Suicide Prevention for Adults (ED) - Clinical Impression Clinical Impression: Depression, Substance abuse - Scribe Statement The provider has reviewed the documentation as recorded by the Scribe (Todd Flores) All medical record entries made by the Scribe were at my direction and personally dictated by me. I have reviewed the chart and agree that the record accurately reflects my personal performance of the history, physical exam, medical decision making, and the department course for this patient. I have also personally directed, reviewed, and agree with the discharge instructions and disposition.
[2016-09-06 14:13] LABS: BASO # 0.1 K/uL (0.0-0.2); BASO % 0.9 % (0.0-2.0); EOS # 0.2 K/uL (0.0-0.7); EOS % 3.1 % (0.0-4.0); HEMOGLOBIN 11.4 g/dL (11.0-16.0); LYMPH # 2.2 K/uL (1.0-4.3); LYMPH % 32.3 % (20.0-40.0); MEAN CELL VOLUME 93.2 fL (81.0-99.0); MEAN CORPUSCULAR HEMOGLOBIN 30.8 pg (27.0-31.0); MONO # 0.8 K/uL (0.0-0.8); MONO % 10.9 % (0.0-10.0); NEUT # 3.7 K/uL (1.8-7.0); NEUT % 52.8 % (50.0-75.0); NRBC % 0.1 % (0.0-2.0); RBC 3.69 Mil/uL (3.80-5.20); RED CELL DISTRIBUTION WIDTH 13.4 % (11.5-14.5); WHITE BLOOD COUNT 6.9 K/uL (4.8-10.8)
[2016-09-06 14:16] LABS: SQUAMOUS EPITHIAL 1 /hpf (0-5); URINE BILIRUBIN NEGATIVE (NEGATIVE); URINE BLOOD NEGATIVE (NEGATIVE); URINE CLARITY Hazy (Clear); URINE COLOR Yellow (YELLOW); URINE GLUCOSE (UA) NORMAL (Normal); URINE LEUKOCYTE ESTERASE NEG Leu/uL (Negative); URINE NITRATE NEGATIVE (NEGATIVE); URINE PROTEIN NEGATIVE (NEGATIVE); URINE UROBILINOGEN NORMAL mg/dL (0.2-1.0)
[2016-09-06 14:19] LABS: OPIATES, UR NEGATIVE (NEGATIVE)
[2016-09-06 14:20] LABS: PHENCYCLIDINE, UR NEGATIVE (NEGATIVE)
[2016-09-06 14:23] LABS: ALBUMIN 4.1 g/dL (3.5-5.0)
[2016-09-06 14:23] LABS: BARBITURATES, UR NEGATIVE (NEGATIVE)
[2016-09-06 14:24] LABS: SALICYLATE < 1.0 mg/dL 1
[2016-09-06 14:26] LABS: ALB/GLOB RATIO 1.1 (1.0-2.1); AST/SGOT 28 U/L (14-36); GFR AFRICAN-AMERICAN > 60; GFR NON-AFRICAN AMERICAN > 60
[2016-09-06 14:27] LABS: ALT/SGPT 23 U/L (9-52); BLOOD UREA NITROGEN 9 mg/dL (7-17); CALCIUM 8.7 mg/dl (8.6-10.4)
[2016-09-06 14:36] LABS: ACETAMINOPHEN < 10.0 ug/mL (10.0-30.0)
[2016-09-06 14:56] LABS: BENZODIAZEPINES, UR POSITIVE (NEGATIVE)
[2016-09-06 16:41] VITALS: BP 103/65; PULSE 90
== END 2016-09-06 16:55 | disposition home or self-care (01) ==
LOC: C.ER 13:21
DX: F32.89 Other specified depressive episodes (principal); F14.10 Cocaine abuse, uncomplicated

== ENCOUNTER 2016-11-22 07:25 | Inpatient (IN) | payer MEDICAID ==
[2016-11-22 07:25] VITALS: BMI 23.6
--- NOTE | 2016-11-22 07:48 | C.PDOC ---
History Of Present Illness 46 y/o female with PMHx of Anxiety and Depression presents to ED with complaints of suicidal ideation with no plan. Patient states "she is tired of her addiction to alcohol, crack and cocaine". Patient reports she drinks ETOH daily and last drink was today at 4am. Patient denies homicidal ideation, hallucinations or any other complaints at this time. Time Seen by Provider: 11/22/16 07:47 Chief Complaint (Nursing): Psychiatric Evaluation History Per: Patient History/Exam Limitations: no limitations Onset/Duration Of Symptoms: Days Current Symptoms Are (Timing): Still Present Suicide/Self Injury Attempted (Context): None Modifying Factor(s): Alcohol, Cocaine, Crack Associated Symptoms: Suicidal Thoughts Past Medical History Reviewed: Historical Data, Nursing Documentation, Vital Signs Vital Signs: Last Vital Signs Temp 97.8 F 11/22/16 07:42 Pulse 75 11/22/16 08:36 Resp 18 11/22/16 07:42 BP 126/90 11/22/16 07:42 Pulse Ox 99 11/22/16 09:01 - Medical History PMH: Anxiety, Depression Denies: Diabetes (Patient denied), Hepatitis (Patient denied), HIV (Patient denied), HTN (Patient denied), Seizures (Patient denied), Sexually Transmitted Disease (Patient denied) Surgical History: No Surg Hx - [facility] Procedures DETOXIFICATION SERVICES FOR SUBSTANCE ABUSE TREATMENT (08/18/16) GROUP MAINTENANCE SHOP WELDER FOR SUBSTANCE ABUSE TREATMENT, PSYCHOEDUCATION (07/03/16) GROUP MAINTENANCE SHOP WELDER FOR SUBSTANCE ABUSE, COGNITIVE BEHAVIORAL (07/03/16) GROUP PSYCHOTHERAPY (08/18/16) INDIV MAINTENANCE SHOP WELDER FOR SUBSTANCE ABUSE TREATMENT, PSYCHOEDUCATION (07/03/16) INDIV MAINTENANCE SHOP WELDER FOR SUBSTANCE ABUSE, COGNITIVE BEHAVIORAL (07/03/16) INDIV PSYCHOTHERAPY FOR SUBSTANCE ABUSE TREATMENT, SUPPORT (08/18/16) INDIV PSYCHOTHERAPY FOR SUBSTANCE ABUSE, COGNITIV BEHAVIORAL (08/18/16) INDIV PSYCHOTHERAPY FOR SUBSTANCE ABUSE, PSYCHOEDUCATION (08/18/16) Family History: States: No Known Family Hx - Social History Hx Alcohol Use: Yes Hx Substance Use: Yes - Immunization History Hx Tetanus Toxoid Vaccination: Yes Hx Influenza Vaccination: No Hx Pneumococcal Vaccination: No Review Of Systems Except As Marked, All Systems Reviewed And Found Negative. Cardiovascular: Negative for: Chest Pain Respiratory: Negative for: Shortness of Breath Gastrointestinal: Negative for: Abdominal Pain Skin: Negative for: Rash Psych: Positive for: Suicidal ideation Physical Exam - Physical Exam Appears: Well, Non-toxic, No Acute Distress Skin: Warm, Dry Head: Atraumatic Oral Mucosa: Moist Neck: Normal ROM Cardiovascular: Rhythm Regular Respiratory: No Decreased Breath Sounds, No Accessory Muscle Use Gastrointestinal/Abdominal: Soft, No Tenderness Extremity: No Swelling Pulses: Left Radial: Normal, Right Radial: Normal Neurological/Psych: Oriented x3, No Normal Motor, No Normal Sensation, Other ( no focal deficits. depressed mood.) ED Course And Treatment - Laboratory Results Result Diagrams: 11/22/16 08:10 11/22/16 08:10 ECG: Interpreted By Me, Viewed By Me ECG Rhythm: Sinus Rhythm ECG Interpretation: No Acute Changes Rate From EC (bpm) O2 Sat by Pulse Oximetry: 99 (RA) Disposition - Disposition Disposition: HOSPITALIZED Disposition Time: 11:26 Condition: STABLE Forms: [facility] (Hebrew) - Clinical Impression Clinical Impression: Depression - Scribe Statement The provider has reviewed the documentation as recorded by the Scribeddie Elliott All medical record entries made by the Scribe were at my direction and personally dictated by me. I have reviewed the chart and agree that the record accurately reflects my personal performance of the history, physical exam, medical decision making, and the department course for this patient. I have also personally directed, reviewed, and agree with the discharge instructions and disposition.
[2016-11-22 08:14] LABS: BASO % 0.7 % (0.0-2.0); EOS # 0.2 K/uL (0.0-0.7); LYMPH # 0.9 K/uL (1.0-4.3); LYMPH % 27.3 % (20.0-40.0); MEAN CORPUSCULAR HEMOGLOBIN 31.3 pg (27.0-31.0); MEAN CORPUSCULAR HGB CONC 34.1 g/dL (33.0-37.0); MEAN PLATELET VOLUME 7.5 fL (7.2-11.7); MONO # 0.6 K/uL (0.0-0.8); MONO % 17.2 % (0.0-10.0); NRBC % 0.1 % (0.0-2.0); RED CELL DISTRIBUTION WIDTH 13.4 % (11.5-14.5)
[2016-11-22 08:15] LABS: WHITE BLOOD COUNT 3.2 K/uL (4.8-10.8)
[2016-11-22 08:27] LABS: CHLORIDE 102 mmol/L (98-107)
[2016-11-22 08:28] LABS: POTASSIUM 3.6 mmol/L (3.6-5.2); SODIUM 138 mmol/L (132-148)
[2016-11-22 08:30] LABS: BILIRUBIN,TOTAL 0.9 mg/dL (0.2-1.3); CARBON DIOXIDE 24 mmol/L (22-30); GFR AFRICAN-AMERICAN > 60
[2016-11-22 08:31] LABS: ALB/GLOB RATIO 1.1 (1.0-2.1); ALCOHOL SERUM < 10 mg/dl (0-10); ALKALINE PHOSPHATASE 69 U/L (38-126); ALT/SGPT 32 U/L (9-52); AST/SGOT 34 U/L (14-36); BLOOD UREA NITROGEN 5 mg/dL (7-17); CALCIUM 9.2 mg/dl (8.6-10.4); GLUCOSE,RANDOM 89 mg/dL (65-105); TOTAL PROTEIN 7.4 g/dL (6.3-8.3)
[2016-11-22 11:07] LABS: RBC URINE 2 /hpf (0-3); URINE BILIRUBIN NEGATIVE (NEGATIVE); URINE BLOOD NEGATIVE (NEGATIVE); URINE COLOR Yellow (YELLOW); URINE GLUCOSE (UA) NORMAL (Normal); URINE KETONE NEGATIVE (NEGATIVE); URINE LEUKOCYTE ESTERASE TRACE Leu/uL (Negative); URINE PROTEIN 1+ mg/dL (NEGATIVE); URINE UROBILINOGEN NORMAL mg/dL (0.2-1.0); WBC URINE 8 /hpf (0-5)
[2016-11-22 12:24] VITALS: BP 126/94; PULSE 83; RESP 20; TEMP 98.5; O2SAT 98
--- NOTE | 2016-11-22 12:46 | PCM.BM ---
Treatment Plan Problems - Problems identified on initial assessmt Depression Date Initiated: 11/22/16 Time Initiated: 12:30 Assessment reference: NA Status: Active Treatment assets and liabiliti Patient Assests: ADL independent Patient Liabilities: poor support system, substance abuse - Milieu Protocol Maintain good personal hygiene: daily Encourage regular showers, daily Remind patient to perform daily oral care, daily Assist patient to perform ADL's Conduct patient checks and document Observation sheet: Q15 minutes Maintain personal safety: every shift Educate patient to report safety concerns to staff, every shift Monitor environment for contraband/sharps Medication safety: Monitor for expected outcome, potential side effects: every shift, Assess barriers to learning: every shift, Assess readiness for medication education: every shift
--- NOTE | 2016-11-23 14:28 | CARD ---
APPROVED REPORT EKG Measurement Heart [id number] <Conclusion> Sinus rhythm with occasional premature ventricular complexes Otherwise normal ECG
== END 2016-11-22 13:15 | disposition left against medical advice (07) | DRG 426 ==
LOC: C.ER 07:25 → C.9E 11:25 → C.5E 11:48
DX: F32.9 Major depressive disorder, single episode, unspecified (principal); R45.851 Suicidal ideations

== ENCOUNTER 2017-05-07 18:33 | Emergency (ER) | payer MEDICAID ==
[2017-05-07 18:33] VITALS: BMI 23.6
[2017-05-07 18:41] VITALS: RESP 18
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
[2017-05-07] MEDS ORDERED: Amoxicillin-Clav 875-125 mg Tab PO STA (21:38)
[2017-05-07] MEDS ORDERED: Amoxicillin-Clav 875-125 mg Tab PO ONE (21:46)
[2017-05-07 21:49] VITALS: BP 149/89; PULSE 86; TEMP 99.3; O2SAT 97
== END 2017-05-07 22:28 | disposition home or self-care (01) ==
LOC: C.ER 18:33
DX: S00.11XA Contusion of right eyelid and periocular area, initial encounter (principal); S02.81XA Fracture of other specified skull and facial bones, right side, initial encounter for closed fracture; Y04.0XXA Assault by unarmed brawl or fight, initial encounter

== ENCOUNTER 2018-05-24 23:46 | Emergency (ER) | payer MEDICAID ==
[2018-05-24 23:49] VITALS: BMI 23.6
== END 2018-05-24 23:57 | disposition left against medical advice (07) ==
LOC: C.ER 23:46
DX: Z02.89 Encounter for other administrative examinations (principal)